=== PATIENT | male | born 1995 | race Caucasian/White ===

== ENCOUNTER 2017-11-24 20:06 | Observation (INO) | payer OTHER, SELFPAY ==
[2017-11-24 21:20] LABS: Hemoglobin 19.3 g/dL (14.0-18.0); Mean Corpuscular HGB CONC 36.4 g/dL (32.0-36.0); Mean Corpuscular Hemoglobin 30.8 pg (27.0-31.0); Mean Corpuscular Volume 84.7 fl (80.0-94.0); Mean Platelet Volume 6.8 fL (7.4-10.4); Platelet Count 236 thou/uL (130-400); RBC Distribution Width 11.9 % (11.5-14.5); Red Blood Cell (RBC) Count 6.24 mill/uL (4.70-6.10); White Blood Cell (WBC) Count 8.9 thou/uL (4.8-10.8)
[2017-11-24 21:35] LABS: ALT (SGPT) 22 U/L (8-55); AST (SGOT) 28 U/L (5-34); Albumin 4.9 g/dL (3.5-5.0); Alkaline Phosphatase 57 U/L (40-150); Anion Gap 18 mmol/L (10-20); BUN (Urea Nitrogen) 22 mg/dL (8.9-20.6); Band 27 % (5-11); Bilirubin, Total 1.5 mg/dL (0.2-1.2); Calc. Creatinine Clearance 0 mL/min (70-130); Calcium 9.7 mg/dL (7.8-10.44); Carbon Dioxide 16 mmol/L (22-29); Chloride 101 mmol/L (98-107); Estimated GFR-MDRD 46; Globulin 3.1 g/dL (2.4-3.5); Glucose 129 mg/dL (70-105); Lipase 7 U/L (8-78); Lymphocytes 7 % (21-51); MDiff Complete? YES; Monocytes 9 % (0-10); Neutrophil 57 % (42-75); Sodium 131 mmol/L (136-145)
[2017-11-24] MEDS ORDERED: Ondansetron ODT 8 MG TAB ONE (21:37)
[2017-11-25] MEDS: Sodium Chloride 0.9% 1,000 ML IV SCH ×2 (02:30→05:01)
[2017-11-25] MEDS ORDERED: Dicyclomine 10 MG CAP PO PRN (03:33)
[2017-11-25] MEDS ORDERED: Ondansetron PF 4 MG/2 ML Vial IVP PRN ×2 (03:45→08:58)
[2017-11-25] MEDS ORDERED: Ondansetron ODT 4 MG TAB SL PRN (03:45)
[2017-11-25 03:47] VITALS: BMI 25.6
[2017-11-25] MEDS ORDERED: Acetaminophen 325 MG TAB PO PRN (08:58)
[2017-11-25] MEDS ORDERED: Ondansetron ODT 4 MG TAB PO PRN (08:58)
[2017-11-25] MEDS ORDERED: Sodium Chloride 0.9% 1,000 ML IV SCH ×2 (08:58→11:45)
[2017-11-25] MEDS ORDERED: Famotidine 40 MG/4 ML VIAL SLOW IVP SCH (09:00)
[2017-11-25 09:22] LABS: Hemoglobin 14.7 g/dL (14.0-18.0); Mean Corpuscular HGB CONC 35.6 g/dL (32.0-36.0); Mean Corpuscular Hemoglobin 30.7 pg (27.0-31.0); Mean Corpuscular Volume 86.4 fl (80.0-94.0); Mean Platelet Volume 6.8 fL (7.4-10.4); Platelet Count 145 thou/uL (130-400); RBC Distribution Width 11.9 % (11.5-14.5); White Blood Cell (WBC) Count 3.4 thou/uL (4.8-10.8)
[2017-11-25] MEDS ORDERED: Enoxaparin Sodium 40 MG/0.4 ML SYRINGE SC SCH (09:30)
[2017-11-25 10:03] LABS: Anion Gap 9 mmol/L (10-20); BUN (Urea Nitrogen) 19 mg/dL (8.9-20.6); Calc. Creatinine Clearance 106 mL/min (70-130); Carbon Dioxide 20 mmol/L (22-29); Chloride 109 mmol/L (98-107); Estimated GFR-MDRD 61; Glucose 106 mg/dL (70-105); Magnesium 1.7 mg/dL (1.6-2.6); Potassium 3.7 mmol/L (3.5-5.1); Sodium 134 mmol/L (136-145)
[2017-11-25 10:19] VITALS: BP 115/61; TEMP 98
[2017-11-25 10:21] LABS: Band 28 % (5-11); Lymphocytes 20 % (21-51); MDiff Complete? YES; Monocytes 7 % (0-10); Neutrophil 39 % (42-75); PLT Morphology Comment Appears Adequate; RBC Morphology Normal; Reactive Lymphocytes 7 % (0-10); Vacuoles SLIGHT
--- NOTE | 2017-11-25 14:47 | HP ---
DATE OF ADMISSION: 11/25/2017 TIME OF SERVICE: 0800 hours. PRIMARY CARE PHYSICIAN: Out of town in [place]. He could not recall the name. CHIEF COMPLAINT: Nausea, vomiting, diarrhea. HISTORY OF PRESENT ILLNESS: Mr. Coles is a pleasant 22-year-old white male with no past medical hist ory who presents to the Emergency Department with a 24-hour history of nausea, vomiting, diarrhea nicho t was progressive. The patient states that on the evening of 11/23, he ate some chicken tenders and F rench fries and the Hungarian fries did not taste right. Shortly thereafter, he developed nausea and vo miting. His belly continued to ache and developed diarrhea that progressed over the next 24 hours, s poncho presented to the emergency department for evaluation of 11/24/2017. Then, he was found to have a creatinine of 1.85 with unknown baseline. Bicarbonate was low at 16 and we were subsequently called for admission. He was accepted by the light armored vehicle officer, and left over for me to admit this morning. He did have recent hi story of being on Keflex 2 to 3 weeks ago for elbow laceration repair. No fevers or chills. No pepe temesis, hematochezia, or melena. No recent sick contacts, no recent travel and no imported foods. The patient was started on IV fluids. Since admission, the patient is feeling much better. He is feeling somewhat hungry. He has got a re gular diet ordered that he is going to attempt. PAST MEDICAL HISTORY: None. PAST SURGICAL HISTORY: 1. Appendectomy. 2. Nasal fracture repair. MEDICATIONS: None. ALLERGIES: NKDA. FAMILY HISTORY: Negative for clotting or bleeding disorder. No immune dysfunction. SOCIAL HISTORY: Significant for weekly social alcohol, but negative for IV drugs or tobacco. REVIEW OF SYSTEMS: A 10-point review of systems was performed and is negative for all other systems except as stated as per HPI. PHYSICAL EXAMINATION: VITAL SIGNS: Temperature 99.1, pulse 97, blood pressure 115/61, respiratory rate 18, satting 93% on room air. GENERAL: He is awake. He is alert. He is oriented x3, well-developed, well-nourished, white male w ho appears to be in no distress. HEENT: Normocephalic, atraumatic. Pupils are equal, around and reactive to light bilaterally. Muco us membrane is moist. No visible lesions. NECK: Supple. He has no lymphadenopathy, JVD or thyromegaly. He has normal carotid upstrokes witho ut bruit. LUNGS: Clear, no wheeze, no rales, no rhonchi. Good air movement. Symmetrical chest excursion. CARDIOVASCULAR: Normal S1, S2. No S3 or S4. Normal rate and regular rhythm. No murmurs. ABDOMEN: Soft, nontender, nondistended. Hyperactive bowel sounds present in all 4 quadrants. There is no rebound, rigidity or guarding. EXTREMITIES: No cyanosis, no clubbing, no edema. SKIN: Warm, moist and well perfused. There is no other rash or lesions. NEUROLOGIC: Cranial nerves II-XII grossly intact. He has no focal deficits. He has 5/5 strength an d normal speech pattern. MUSCULOSKELETAL: Normal to inspection. Large joints appear un-inflamed. There are no palpable effu sions. LABORATORY DATA: Sodium is 131, potassium 4.0, chloride 101, bicarbonate 16, BUN 22, creatinine 1.85 , glucose 129 and calcium 9.7. Liver function is completely within normal limits except for a total bilirubin slightly elevated at 1.5. CBC showed a white count of 8.9, 57% granulocytosis and 27% band emia, hemoglobin is 19.3, hematocrit 52.9, platelet count is 236,000. Lipase was 7. RADIOGRAPHIC STUDIES: None. ASSESSMENT AND PLAN: 1. Likely food borne illness, likely toxin mediated given rapid-acting effect. The patient is feeli ng much better. At this point, we will follow up with stool studies. We will challenge him with t as he is feeling better and see if he can tolerate, if he can keep it down, we will let him go home . 2. Moderate to severe dehydration: The patient did have acute kidney injury. We will repeat labs a fter getting fluids and we will follow up on his hemoglobin, hematocrit since it was elevated at 19, likely hemoconcentrated. 3. Acute kidney injury: As above.
--- NOTE | 2017-11-25 14:52 | DIS ---
DATE OF ADMISSION: 11/25/2017. The patient was accepted for observation sometime around 1:00 a.m. DATE OF DISCHARGE: 11/25/2017 at 1400. DISCHARGE DIAGNOSES: 1. Acute food borne illness. 2. Intractable nausea and vomiting. 3. Moderate dehydration. 4. Acute kidney injury. CONSULTATIONS: None. PROCEDURES: None. HISTORY AND PHYSICAL: Mr. Coles is a 22-year-old male who developed progressive nausea, vomiting, an d diarrhea after eating some food that did not taste right. After 24 hours, he presented to the [facility] for evaluation. He was found to be dehydrated in concentrates and creatinine of 1.8 . We were called for admission. HOSPITAL COURSE: The patient was accepted by the floor technician. I am admitting in the morning. The pa ramón did receive fluids for the last 6-8 hours. We will repeat a BUN and creatinine, were improved down from 1.85-1.4. His nausea resolved and diarrhea had slowed down. He was started on a regular d iet which he tolerated at lunch time and had no further problems. He was stable for discharge with o utpatient followup. PHYSICAL EXAMINATION: The patient was seen and examined on the day of discharge. DISCHARGE PLAN AND DISPOSITION: Discussed with the patient [id number] at the bedside. DISCHARGE MEDICATIONS: None. FOLLOWUP APPOINTMENTS: Primary care physician at next available. DISCHARGE CONDITION: Stable. DISPOSITION: Being discharged home via private vehicle. DISCHARGE DIET: No restrictions. DISCHARGE ACTIVITY: ad logan.
[2017-11-25] MEDS ORDERED: Famotidine 20 MG TAB PO SCH (21:00)
== END 2017-11-25 14:58 | disposition home or self-care (01) ==
LOC: ERS 20:06 → INTOOBSV 11-25 01:00 → ONC 11-25 01:00
PROVIDERS: ADMIT Family Medicine; ATTEND Family Medicine
DX: A05.9 Bacterial foodborne intoxication, unspecified (principal); R11.2 Nausea with vomiting, unspecified; E86.0 Dehydration; N17.9 Acute kidney failure, unspecified; Z90.49 Acquired absence of other specified parts of digestive tract; Z98.890 Other specified postprocedural states
CPT/HCPCS: 36415; 80048; 80053; 82274; 83690; 83735; 85025; 87045; 87046; 87449; 87899; 96360; 96361; 96372; G0378; J1650